=== PATIENT | male | born 1995 | race Caucasian/White ===

== ENCOUNTER 2017-11-04 04:54 | Emergency (ER) | payer OTHER ==
[~2017-11-04] VITALS: Ht 182.9 cm; Wt 99.8 kg
[2017-11-04 05:10] VITALS: Ht 182.9 cm; Wt 99.8 kg
[2017-11-04 07:45] VITALS: BP 132/74
== END 2017-11-04 07:45 | disposition home or self-care (01) ==
LOC: ED 04:54
DX: B34.9 Viral infection, unspecified (principal); J98.01 Acute bronchospasm
CPT/HCPCS: J7512; J7613; J7644

== ENCOUNTER 2017-12-17 11:13 | Emergency (ER) | payer OTHER ==
[~2017-12-17] VITALS: Ht 182.9 cm; Wt 96.2 kg
[2017-12-17 11:30] VITALS: BP 130/80; Ht 182.9 cm; Wt 96.2 kg
== END 2017-12-17 12:53 | disposition home or self-care (01) ==
LOC: ED 11:13
DX: R21 Rash and other nonspecific skin eruption (principal)